=== PATIENT | male | born 1990 | race African-American/Black ===

== ENCOUNTER 2018-03-05 04:44 | Emergency (ER) | payer OTHER ==
[~2018-03-05] VITALS: Ht 177.8 cm; Wt 59.0 kg
[~2018-03-05 04:44] MED LIST: AMOXICILLIN500 M2 PO; ATARAX,VISTARIL50 MG PO; CARBIDOPA/LEVOD1 TA1 PO; DAYTIME COLD M1 EACH PO; GUAIFENESIN600 MG PO; Motrin,Rufen800 MG PO; ONDANSETRON HYDR4 M1 PO; ZOFRAN 4 MG ED2 TAB PO
== END 2018-03-05 06:55 | disposition home or self-care (01) ==
LOC: ED 04:44
DX: S20.221A Contusion of right back wall of thorax, initial encounter (principal); F17.210 Nicotine dependence, cigarettes, uncomplicated; Y04.0XXA Assault by unarmed brawl or fight, initial encounter; Y93.89 Activity, other specified; Y92.89 Other specified places as the place of occurrence of the external cause; Y99.8 Other external cause status

== ENCOUNTER 2019-07-13 12:37 | Inpatient (IN) | payer OTHER ==
[~2019-07-13] VITALS: Ht 177.8 cm; Wt 64.0 kg
[~2019-07-13 12:37] MED LIST changes: +BUPRENORPHINE HY8 MG SL; +NEURONTIN300 MG PO; +QUETIAPINE FUMA50 M1 PO
[2019-07-13] MEDS ORDERED: GABAPENTIN400 MG PO (13:54)
--- NOTE | 2019-07-13 13:55 | NUR ---
A 28, admitted to 5E, under the services of DANIEL Herman DO with a diagnosis of opiate withdrawal. Chief complaint is opiate dependence. Patient arrived via ambulatory from [place]. Monitor applied. Initial assessment completed. Vital signs taken and recorded. DANIEL HERMAN DO notified of admission to the unit. Orders received. See assessment for past medical history, medications and allergies. Patient and/or family oriented to unit. [address] visitation policy reviewed. Clothing/patient valuable form completed. ANN MARIE MARTE
[2019-07-13 14:02] VITALS: BP 112/67
--- NOTE | 2019-07-13 14:03 | NUR ---
PATIENT MEETS [facility]. CINA=15. [facility] STAFF PROVIDED REFERRAL OPTIONS TO PATIENT. [facility] STAFF WILL FOLLOW UP WITH PATIENT. RAÚL RESENDEZ B.A. RANGE OPERATOR
[2019-07-13] MEDS ORDERED: IRON325 M1 PO (14:07)
[2019-07-13] MEDS ORDERED: VISTARIL50 MG PO (14:08)
--- NOTE | 2019-07-13 14:11 | NUR ---
Spoke with regarding patients arrival to unit. Updated physician on patients condition and his request for a meal. Physician to relay message to team #2. Awaiting orders.
[2019-07-13 15:41] LABS: BILIRUBIN NEGATIVE (NEGATIVE); BLOOD TRACE-INTACT (NEGATIVE); CLARITY CLEAR (CLEAR); COLOR YELLOW (YELLOW); GLUCOSE NEGATIVE (NEGATIVE); KETONE NEGATIVE (NEGATIVE); LEUKO ESTERASE NEGATIVE (NEGATIVE); NITRITE NEGATIVE (NEGATIVE); SPECIFIC GRAVITY >= 1.030 (1.005-1.030); UROBILINOGEN 0.2 E.U./dl (0.2-1.0)
[2019-07-13 15:47] LABS: RBC 0-2 rbc/hpf (0-2)
[2019-07-13 15:48] LABS: BACTERIA TRACE; EPITHELIAL CELLS 0-2; WBC 0-2 wbc/hpf (0-5)
[2019-07-13 16:00] VITALS: BP 126/60
[2019-07-13 16:16] LABS: BASO % 0.4 % (0.0-1.0); EOS # 0.1 10*3/uL (0.0-0.4); EOS % 1.7 % (1.0-4.0); LYMPH # 3.2 10*3/uL (1.3-4.4); LYMPH % 41.2 % (27.0-41.0); MEAN CELL VOLUME 87.2 fl (80.0-94.0); MEAN CORPUSCULAR HGB 27.5 pg (27.0-31.0); MEAN CORPUSCULAR HGB CONC 31.6 g/dl (33.0-37.0); MEAN PLATELET VOLUME 9.3 fl (9.6-12.3); MONO # 0.7 10*3/uL (0.1-1.0); MONO % 8.4 % (3.0-9.0); NEUT # 3.7 10*3/uL (2.3-7.9); PLATELET COUNT AUTOMATED 246 10*3/uL (130-400); RED BLOOD COUNT 4.36 10*6/uL (4.50-5.90); RED CELL DISTRI WIDTH 13.9 % (0-14.5); WHITE BLOOD COUNT 7.7 10*3/uL (4.8-10.8)
[2019-07-13 16:16] LABS: URINE AMPHETAMINES < 1000 (1000ng/ml); URINE BARBITURATES < 200 (200ng/ml); URINE BENZODIAZEPINES < 200 (200ng/ml); URINE CANNABINOIDS (THC) < 50 (50ng/ml); URINE COCAINE > 300 (300ng/ml); URINE METHADONE < 300 (300ng/ml); URINE OPIATES > 300 (300ng/ml)
[2019-07-13 16:20] LABS: URINE PHENCYCLIDINE < 25 (25ng/ml)
[2019-07-13 16:32] LABS: ALBUMIN 3.5 gm/dl (3.1-4.5); ALKALINE PHOSPHATASE 68 U/L (45-117); BUN 18 mg/dl (7-24); CHLORIDE 106 mmol/L (98-107); CREATININE 0.83 mg/dL (0.70-1.30); POTASSIUM 3.7 mmol/L (3.5-5.1); SGOT/AST 33 IU/L (3-35); SGPT/ALT 53 U/L (12-78); SODIUM 140 mmol/L (136-145)
[2019-07-13 16:33] LABS: ETHYL ALCOHOL < 3.0 mg/dl (<3)
--- NOTE | 2019-07-13 17:15 | NUR ---
Nurse to nurse report called to Adriana at [facility].
[2019-07-13 20:00] VITALS: BP 117/73
--- NOTE | 2019-07-13 21:09 | NUR ---
PRN TRAZODONE ADMINISTERED AT THIS TIME.
[2019-07-14] VITALS: BP 102/52
--- NOTE | 2019-07-14 05:51 | NUR ---
REQUIP AND MOTRIN GIVEN PER PT REQUEST FOR RESTLESS LEGS,
[2019-07-14 08:00] VITALS: BP 138/80
--- NOTE | 2019-07-14 09:28 | NUR ---
PT MEDICATED WITH ROBAXIN FOR MUSCLE ACHES AND VISTARIL FOR ANXIETY WILL MONITOR
--- NOTE | 2019-07-14 12:43 | NUR ---
PT REFUSED THE ONE DOSE OF VISTARIL PT STATES THAT HE IS LEAVING AMA DR PATRICK NOTIFIED
--- NOTE | 2019-07-14 12:53 | NUR ---
DIONNA DE JESUS NOTIFIED OF PT LEAVING AMA
== END 2019-07-14 12:53 | disposition left against medical advice (07) | DRG 770 ==
LOC: 5E 12:37
PROVIDERS: Family Medicine; ADMIT Family Medicine
DX: F11.23 Opioid dependence with withdrawal (principal); F31.9 Bipolar disorder, unspecified; R61 Generalized hyperhidrosis; R45.1 Restlessness and agitation; F17.210 Nicotine dependence, cigarettes, uncomplicated; F19.10 Other psychoactive substance abuse, uncomplicated; G25.81 Restless legs syndrome; D64.9 Anemia, unspecified; B19.20 Unspecified viral hepatitis C without hepatic coma; F14.10 Cocaine abuse, uncomplicated; Z53.29 Procedure and treatment not carried out because of patient's decision for other reasons; Z71.6 Tobacco abuse counseling; Z83.6 Family history of other diseases of the respiratory system; Z81.8 Family history of other mental and behavioral disorders; Z82.49 Family history of ischemic heart disease and other diseases of the circulatory system